=== PATIENT | male | born 1965 | race Caucasian/White ===

== ENCOUNTER 2016-03-08 17:46 | Emergency (ER) | payer SELFPAY ==
[~2016-03-08] VITALS: Wt 75.0 kg
[2016-03-08] MEDS ORDERED: KETOROLAC 60 MG INJ IM STA (19:00)
[2016-03-08] MEDS ORDERED: BACTDS PO (19:02)
[2016-03-08] MEDS ORDERED: BENZ100C70 PO (19:02)
[2016-03-08] MEDS ORDERED: LEVO500T72 PO (19:02)
[2016-03-08] MEDS ORDERED: NAPR-688 PO (19:02)
--- NOTE | 2016-03-08 19:07 | ERD ---
ER Documentation Chief Complaint Date/Time DATE: 03/08/16 TIME: 19:04 Chief Complaint COUGH CONGESTION WITH NO INTERMITTENT FEVERS FOR FEW WEEKS HPI This 30-year-old male presents to the ER with cough or 3 weeks. The cough is been off and on. He's had chills but no measured fevers. States that he has had infection into pneumonia before. He is a current smoker but he has been smoking less since he's been sick. He also states that he has a lump on his back. He states that he squeezed it last week in the bathroom and fluid came out. States that he it causes him pain when he lays on top of it. ROS All systems reviewed and are negative except as per history of present illness. Medications Home Meds Active Scripts Benzonatate* (Tessalon Perle*) 100 Mg Capsule, 100 MG PO Q8H Y for COUGH, #14 CAP Prov:TAMIKA YOUSIF DO 03/08/16 Naproxen* (Naproxen*) 500 Mg Tablet, 500 MG PO BID Y for PAIN, #20 TAB Prov:TAMIKA YOUSIF DO 03/08/16 Levofloxacin* (Levaquin*) 500 Mg Tablet, 500 MG PO DAILY for 7 Days, TAB Prov:TAMIKA YOUSIF DO 03/08/16 Sulfamethoxazole-Trimethoprim* (Bactrim* DS) 800-160 Mg Tab, 1 TAB PO BID for 10 Days, TAB Prov:TAMIKA YOUSIF DO 03/08/16 Physical Exam Vitals Vital Signs Date Time Temp Pulse Resp B/P Pulse Ox O2 Delivery O2 Flow Rate FiO2 03/08/16 18:07 97.8 73 21 140/89 100 Physical Exam Const: [] No distress, smells like cigarettes Head: Atraumatic Eyes: Normal Conjunctiva ENT: Normal External Ears, Nose and Mouth. Neck: Full range of motion..~ No meningismus. Resp: Clear to auscultation bilaterally, coughs on exam Cardio: Regular rate and rhythm, no murmurs Abd: Soft, non tender, non distended. Normal bowel sounds Skin: No petechiae or rashes Back: No midline or flank tenderness, left mid back and paraspinal area with 2 x 2 centimeter area of induration and erythema with a central area of excoriation consistent with the drained abscess. No fluctuance. Ext: No cyanosis, or edema Neur: Awake and alert and oriented 3, no focal deficits Psych: Normal Mood and Affect Results 24 hrs Current Medications Medications (Trade) Dose Ordered Sig/Radha Route PRN Reason Start Time Stop Time Status Last Admin Dose Admin Ketorolac Tromethamine (Toradol) 60 mg ONCE STAT IM 03/08/16 19:00 03/08/16 19:01 DC Departure Diagnosis: Primary Impression: Cellulitis of back Additional Impression: Acute bronchitis Condition: Stable Patient Instructions: Cellulitis, Bronchitis, Antiobiotic Treatment (Adult), Smoking Cessation Referrals: [facility] YOU HAVE RECEIVED A MEDICAL SCREENING EXAM AND THE RESULTS INDICATE THAT YOU DO NOT HAVE A CONDITION THAT REQUIRES URGENT TREATMENT IN THE EMERGENCY DEPARTMENT. FURTHER EVALUATION AND TREATMENT OF YOUR CONDITION CAN WAIT UNTIL YOU ARE SEEN IN YOUR DOCTORS OFFICE WITHIN THE NEXT 1-2 DAYS. IT IS YOUR RESPONSIBILITY TO MAKE AN APPOINTMENT FOR FOLOW-UP CARE. IF YOU HAVE A PRIMARY DOCTOR --you should call your primary doctor and schedule an appointment IF YOU DO NOT HAVE A PRIMARY DOCTOR YOU CAN CALL OUR PHYSICIAN REFERRAL HOTLINE AT IF YOU CAN NOT AFFORD TO SEE A PHYSICIAN YOU CAN CHOSE FROM THE FOLLOWING [facility] [address] [facility]. [facility] [address] [facility] [address] [facility] [facility] [address] [facility]. [facility] [address] [facility] [facility]. [address] Additional Instructions: Call your primary care doctor TOMORROW for an appointment during the next 2-3 days.See the doctor sooner or return here if your condition worsens before your appointment time. TAMIKA YOUSIF DO Mar 08, 2016 19:06
--- NOTE | 2016-03-08 19:50 | RADRPT ---
PROCEDURE: Chest x-ray CLINICAL INDICATION: Cough TECHNIQUE: Chest single view COMPARISON: None FINDINGS: The heart is normal in size. The pulmonary vessels are normal in caliber. The lungs are clear. Th e costophrenic angles are sharp. The visualized bony thorax is unremarkable. IMPRESSION: No acute cardiopulmonary disease. RPTAT: HH .Sekou Ramirez MD, Date Time Electronically viewed and signed by .Sekou Ramirez MD, MD on 03/08/2016 19:50 .W/
== END 2016-03-08 20:46 | disposition home or self-care (01) ==
LOC: FTE 17:46
DX: L03.312 Cellulitis of back [any part except buttock and flank] (principal); J20.9 Acute bronchitis, unspecified; F17.210 Nicotine dependence, cigarettes, uncomplicated
CPT/HCPCS: 71010; 96372; 99284; J1885